=== PATIENT | male | born 1945 | race Caucasian/White ===

== ENCOUNTER 2022-09-02 08:24 | Outpatient (CLI) | payer MEDICARE, BC | END 2022-09-02 08:25 | disposition home or self-care (01) | LOC: CSHWCC 08:24 | PROVIDERS: ATTEND Nurse Practitioner Family | DX: L98.412 Non-pressure chronic ulcer of buttock with fat layer exposed (principal) | CPT/HCPCS: 97139; 97597; 97598; G0463; 99213 ==

== ENCOUNTER 2023-04-18 09:12 | Outpatient (CLI) | payer MEDICARE, BC ==
[2023-04-18] MEDS ORDERED: Iopamidol 300 61% 100 ML VIAL FS ONE (10:03)
== END 2023-04-18 09:13 | disposition home or self-care (01) ==
LOC: CSHCT 09:12
PROVIDERS: ATTEND Physician Assistant Medical
DX: K70.30 Alcoholic cirrhosis of liver without ascites (principal); K21.9 Gastro-esophageal reflux disease without esophagitis; K52.839 Microscopic colitis, unspecified; L29.0 Pruritus ani; R16.1 Splenomegaly, not elsewhere classified
CPT/HCPCS: 74170; 82565

== ENCOUNTER 2025-01-22 09:09 | Outpatient (CLI) | payer MEDICARE, BC ==
[2025-01-22 10:29] LABS: Estimated GFR - POC 61.0
[2025-01-22] MEDS ORDERED: Iopamidol 300 61% 100 ML VIAL FS ONE (11:45)
== END 2025-01-22 09:10 | disposition home or self-care (01) ==
LOC: CSHCT 09:09
PROVIDERS: ATTEND Internal Medicine Gastroenterology
DX: K70.30 Alcoholic cirrhosis of liver without ascites (principal); Z87.898 Personal history of other specified conditions; R19.8 Other specified symptoms and signs involving the digestive system and abdomen; E11.9 Type 2 diabetes mellitus without complications; R53.83 Other fatigue
CPT/HCPCS: 74177; 82565